=== PATIENT | female | born 1990 | race Caucasian/White ===

== ENCOUNTER 2017-03-27 13:52 | Inpatient (IN) | payer BC ==
[~2017-03-27] VITALS: Ht 167.6 cm; Wt 112.6 kg
[2017-03-27 14:30] VITALS: O2SAT 98
[2017-03-27 14:34] LABS: I-STAT POTASSIUM 4.2 MMOL/L (3.5-4.9)
--- NOTE | 2017-03-27 14:35 | PD.CAR.PN ---
CVT Progress Note Subjective/Hospital Course: Patient is a 26-year-old female who slid down a incline obstacle course wall from about 10 feet while holding onto a rope. Incline was such that the patient actually didn't fall but slipped down the slippery obstacle and landed on her right ankle For some reason this was called as a trauma alert but by any mechanism of injury or injuries present he did not qualify for the same. Patient has isolated closed right ankle fracture and splint is applied Physical examination reveals right foot in a splint warm well perfused with normal capillary refill No vascular or neurologic deficit Patient is downgraded to regular ER evaluation and care Thanks Deann Apodaca MD March 27, 2017 14:35
--- NOTE | 2017-03-27 14:36 | RADRPT ---
EXAM DATE/TIME: 03/27/2017 13:46 [facility] COMPARISON: No previous studies available for comparison. INDICATIONS : Trauma alert. Right ankle pain. MEDICAL HISTORY : None. SURGICAL HISTORY : None. ENCOUNTER: Initial ACUITY: 1 day PAIN SCORE: 5/10 LOCATION: Right ankle. FINDINGS: Two view examination was performed of the right ankle. There are bimalleolar displaced fractures with dislocation the ankle mortise. No radiopaque foreign bodies are seen. Bony mineralization is richy l. CONCLUSION: Bimalleolar fractures with dislocation. Jason Santacruz MD on March 27, 2017 at 14:33 Board Certified Radiologist. This report was verified electronically.
--- NOTE | 2017-03-27 14:37 | RADRPT ---
EXAM DATE/TIME: 03/27/2017 13:59 [facility] COMPARISON: No previous studies available for comparison. INDICATIONS : Trauma alert. Post reduction right ankle. MEDICAL HISTORY : None. SURGICAL HISTORY : None. ENCOUNTER: Initial ACUITY: 1 day PAIN SCORE: 5/10 LOCATION: Right ankle. FINDINGS: Two view examination was performed of the right ankle. Postreduction splinted views demonstrates sign ificant improvement in alignment. Bimalleolar fractures with mild displacement. Ankle mortise near-an atomic. CONCLUSION: Postreduction splinted views with significant improvement in alignment. Jason Santacruz MD on March 27, 2017 at 14:34 Board Certified Radiologist. This report was verified electronically.
[2017-03-27 14:40] LABS: APTT (PATIENT) 23.3 SEC (24.3-30.1); PROTHROMBIN TIME - PATIENT 10.5 SEC (9.8-11.6)
[2017-03-27 14:41] VITALS: O2SAT 98
[2017-03-27 14:47] LABS: BASOPHIL # 0.1 TH/MM3 (0-0.2); BASOPHIL % 0.4 % (0.0-2.0); EOSINOPHIL # 0.1 TH/MM3 (0-0.4); EOSINOPHIL % 0.5 % (0.0-4.0); HEMATOCRIT 36.4 % (35.0-46.0); HEMO FLAGS DIFF FINAL; LYMPH % 10.5 % (9.0-44.0); LYMPHOCYTE # 1.5 TH/MM3 (1.0-4.8); MEAN CELL VOLUME 79.3 FL (80.0-100.0); MEAN CORPUSCULAR HEMOGLOBIN 26.4 PG (27.0-34.0); MEAN CORPUSCULAR HGB CONC 33.3 % (32.0-36.0); MONO % 4.1 % (0.0-8.0); NEUT % 84.5 % (16.0-70.0); PLATELET COUNT 290 TH/MM3 (150-450); RED BLOOD COUNT 4.59 MIL/MM3 (4.00-5.30); RED CELL DISTRIBUTION WIDTH 14.5 % (11.6-17.2); WHITE BLOOD COUNT 14.2 TH/MM3 (4.0-11.0)
--- NOTE | 2017-03-27 14:50 | PD ---
HPI Chief Complaint: Trauma (Alert) Time Seen by Provider: 13:58 Travel History International Travel<30 days: No Contact w/Intl Traveler<30days: No Traveled to known affect area: No History of Present Illness HPI Young female patient was brought in as a trauma alert. I was present in the room prior to her arrival. Patient was in an obstacle course climbing a slanted wall when she lost control and slid on the wall. She landed on the ground awkwardly on her right ankle/foot twisted. She was unable to stand up and was on severe pain. Initially when paramedics arrived they could not feel a pulse. Her initial blood pressure was in the 90s. They called a trauma alert based on those 2 criteria. She did not hit her head and did not lose consciousness. No other injuries. She was awake, GCS of 15 and hemodynamically stable. Otherwise a healthy patient she said. [facility] Past Medical History Narrative Medical No significant past medical history. Medical History: Denies Significant Hx Past Surgical History Cholecystectomy: Yes Social History Tobacco Use: No Allergies-Medications (Allergen,Severity, Reaction): Coded Allergies: Penicillin (Verified Allergy, Unknown, 03/27/17) Comments Unknown Reported Meds & Prescriptions Reported Meds & Active Scripts Active Narrative Medication Unknown Review of Systems Except as stated in HPI: all other systems reviewed are Neg Physical Exam Narrative GENERAL: Awake, alert, obese, mild distress SKIN: Focused skin assessment warm/dry. Covered in drive moderate HEAD: Atraumatic. Normocephalic. EYES: Pupils equal and round. No scleral icterus. No injection or drainage. ENT: No nasal bleeding or discharge. Mucous membranes pink and moist. NECK: Trachea midline. No JVD. CARDIOVASCULAR: Regular rate and rhythm. No murmur appreciated. RESPIRATORY: No accessory muscle use. Clear to auscultation. Breath sounds equal bilaterally. GASTROINTESTINAL: Abdomen soft, non-tender, nondistended. Hepatic and splenic margins not palpable. MUSCULOSKELETAL: Right ankle deformity. No palpable pulse but dopplerable pulses present. Distal neurovascular intact. No clubbing. No cyanosis. No edema. NEUROLOGICAL: Awake and alert. No obvious cranial nerve deficits. Motor grossly within normal limits. Normal speech. PSYCHIATRIC: Appropriate mood and affect; insight and judgment normal. Data Data Last Documented VS Vital Signs Date Time Temp Pulse Resp B/P Pulse Ox O2 Delivery O2 Flow Rate FiO2 03/27/17 14:41 98 Nasal Cannula 2.00 Orders Ed Poc Ultrasound (03/27/17 ) I-Stat Profile (03/27/17 14:04) I-Stat Creatinine (03/27/17 14:04) Complete Blood Count With Diff (03/27/17 14:04) Prothrombin Time / Inr (Pt) (03/27/17 14:04) Act Partial Throm Time (Ptt) (03/27/17 14:04) Type And Screen (03/27/17 14:04) Iv Access Insert/Monitor (03/27/17 14:04) Ecg Monitoring (03/27/17 14:04) Oximetry (03/27/17 14:04) Oxygen Administration (03/27/17 14:04) Ankle, Limited (Ap&Lat) (03/27/17 ) Ankle, Limited (Ap&Lat) (03/27/17 ) Fiberglass Short Leg Splint Ad (03/27/17 ) Fiberglass Sugartong Sp Ad Sl (03/27/17 ) Admit Order (Ed Use Only) (03/27/17 14:51) Labs Laboratory Tests Test 03/27/17 14:19 White Blood Count 14.2 TH/MM3 Red Blood Count 4.59 MIL/MM3 Hemoglobin 12.1 GM/DL Bedside Hemoglobin 12.6 G/DL Hematocrit 36.4 % Bedside Hematocrit 37.0 % Mean Corpuscular Volume 79.3 FL Mean Corpuscular Hemoglobin 26.4 PG Mean Corpuscular Hemoglobin 33.3 % Concent Red Cell Distribution Width 14.5 % Platelet Count 290 TH/MM3 Mean Platelet Volume 8.9 FL Neutrophils (%) (Auto) 84.5 % Lymphocytes (%) (Auto) 10.5 % Monocytes (%) (Auto) 4.1 % Eosinophils (%) (Auto) 0.5 % Basophils (%) (Auto) 0.4 % Neutrophils # (Auto) 12.0 TH/MM3 Lymphocytes # (Auto) 1.5 TH/MM3 Monocytes # (Auto) 0.6 TH/MM3 Eosinophils # (Auto) 0.1 TH/MM3 Basophils # (Auto) 0.1 TH/MM3 CBC Comment DIFF FINAL Differential Comment Prothrombin Time 10.5 SEC Prothromb Time International 1.0 RATIO Ratio Activated Partial 23.3 SEC Thromboplast Time Bedside Sodium 140 MMOL/L Bedside Potassium 4.2 MMOL/L Bedside Chloride 107 MMOL/L Bedside Blood Urea Nitrogen 12 MG/DL Bedside Creatinine 0.8 MG/DL Bedside Glucose 97 MG/DL Blood Type A NEGATIVE Antibody Screen NEGATIVE [facility] Medical Screen Exam Complete: Yes Emergency Medical Condition: Yes Medical Record Reviewed: Yes EKG Prior to Arrival: Yes Differential Diagnosis Ankle fracture, ankle dislocation Narrative Course 2:46 PM the ankle was reduced by me and the splint applied by [employer]. I discussed the case with Dr. Treadwell who is on for orthopedics and he wanted the splint to have the cold machine inserted into the splint. He wanted the patient to be nothing by mouth after midnight and would operate tomorrow by Dr. Nayak. Patient has been informed about this. She is okay with that. She is currently comfortable. Trauma surgeon was here and saw the patient and downgraded her. Patient will be admitted to the orthopedic service. Critical Care Narrative Aggregate critical care time was 30 minutes. Time to perform other separately billable procedures was not included in the critical care time. My time did not include minutes spent treating any other patients simultaneously or on activities that did not directly contribute to the patient's treatment. The services I provided to this patient were to treat and/or prevent clinically significant deterioration that could result in: Trauma alert I provided critical care services requiring my management, as noted below: Chart data review, documentation time, medication orders and management, vital sign assessments/reviewing monitor data, ordering and reviewing lab tests, ordering and interpreting/reviewing x-rays and diagnostic studies, care of the patient and discussion of the patient with the admitting physicians. Procedures Procedure Narrative Ankle dislocation reduction: The ankle joint was manipulated and reduced by me and brought back to anatomical alignment. Patient tolerated the procedure well. Splint was applied by the [employer]. Physician Communication Dr. Duarte, Dr. Treadwell Diagnosis Diagnosis: Primary Impression: Fall Qualified Code: W19.XXXA - Fall, initial encounter Additional Impressions: Ankle dislocation Qualified Code: S93.04XA - Ankle dislocation, right, initial encounter Ankle fracture, right Qualified Code: S82.891A - Ankle fracture, right, closed, initial encounter Admitting Physician Requests: Admit Scripts Hydrocodone-Acetaminophen ([place])7.5-325 mg Tab1 Tab PO Q4H PRN (PAIN) #60 TAB Ref 0 Prov:Diogenes Torres 03/28/17 Ward Mock MD March 27, 2017 14:50
[2017-03-27 16:33] VITALS: BP 108/58; PULSE 89; RESP 16; O2SAT 100
[2017-03-27] MEDS: MORPHINE SULFATE 4 MG/ML INJ IV PRN ×3 (18:00→22:48)
[2017-03-27 20:05] VITALS: BP 121/77; PULSE 92; RESP 17; TEMP 99.8; O2SAT 99
[2017-03-28 00:25] VITALS: BP 112/55; PULSE 84; RESP 16; TEMP 98.4; O2SAT 100
[2017-03-28] MEDS: MORPHINE SULFATE 4 MG/ML INJ IV PRN ×2 (00:56→04:24)
[2017-03-28 04:35] VITALS: BP 121/59; PULSE 93; RESP 17; TEMP 98.6; O2SAT 99
[2017-03-28] MEDS ORDERED: HYDR-3288 PO (06:29)
[2017-03-28] MEDS ORDERED: WALKER/ADULT/FO1 MIS (06:29)
--- NOTE | 2017-03-28 06:32 | PD.ORT.PN ---
Subjective Subjective Remarks s/p fall while doing a mud run right ankle pain. no other complaints. Objective Vitals Vital Signs Date Time Temp Pulse Resp B/P Pulse Ox O2 Delivery O2 Flow Rate FiO2 03/28/17 04:35 98.6 93 17 121/59 99 03/28/17 00:25 98.4 84 16 112/55 100 03/27/17 20:05 99.8 92 17 121/77 99 03/27/17 16:33 89 16 108/58 100 03/27/17 14:41 98 Nasal Cannula 2.00 03/27/17 14:30 98 2.00 I/O 03/27/17 03/27/17 03/27/17 03/28/17 03/28/17 03/28/17 07:00 15:00 23:00 07:00 15:00 23:00 Intake Total 480 ml Balance 480 ml Intake Oral 480 ml # Voids 1 # Bowel Movements 0 Result Diagram: 03/27/17 1419 Other Results Laboratory Tests Test 03/27/17 14:19 Prothrombin Time 10.5 SEC (9.8-11.6) Prothromb Time International 1.0 RATIO Ratio Objective Remarks RLE: +short leg splint. intact. NVI. no pain in knee or hip Assessment & Plan Assessment and Plan 1) Right Trimalleolar Ankle Fx -NPO -Consents -surgery today Diogenes Torres March 28, 2017 06:31
[2017-03-28] MEDS ORDERED: GENTAMICIN SULFATE 80 MG/2 ML VIAL ONE (06:59)
[2017-03-28] MEDS ORDERED: ACETAMINOPHEN 1000 MG/100 ML VIAL IV ONE (07:09)
[2017-03-28] MEDS ORDERED: MIDAZOLAM HCL 2 MG/2 ML VIAL ONE (07:10)
[2017-03-28] MEDS ORDERED: DEXAMETHASONE SOD PHOS 4 MG/ML VIAL ONE (07:10)
[2017-03-28] MEDS ORDERED: fentaNYL CITRATE 250 MCG/5 ML AMP ONE (07:10)
[2017-03-28] MEDS ORDERED: FAMOTIDINE 20 MG/2 ML VIAL ONE (07:10)
--- NOTE | 2017-03-28 07:17 | MB ---
cc: JUDE TYSON AKA: Evie Ponce DATE OF CONSULTATION: 03/28/2017 REASON FOR CONSULTATION Right ankle fracture-dislocation. HISTORY OF PRESENT ILLNESS This patient known as Evie Ponce, whose real name is Candido Flores, was doing an obstacle course race. She was climbing a slanted wall. She lost control and fell. She hit the ground and landed on her right ankle. She had immediate right ankle pain and deformity. She presented to the emergency room as a Trauma Alert. Her only complaint is her right ankle. Pain is worse with movement and is improved with rest. X-rays in the emergency department revealed a fracture-dislocation of the right ankle. She underwent closed reduction in the emergency department. She denies any other injuries. She had no loss of consciousness. PAST MEDICAL HISTORY SURGERIES Cholecystectomy. ALLERGIES No known drug allergies. MEDICATIONS Please see EMR for complete list of inpatient medications. ILLNESSES None. SOCIAL HISTORY The patient denies alcohol, tobacco or drug use. REVIEW OF SYSTEMS The patient denies headache, visual changes, neck pain, chest pain, shortness of breath, abdominal pain, nausea, vomiting or recent weight loss. She complains of right ankle pain. Pain is worse with movement. PHYSICAL EXAMINATION GENERAL: The patient is a pleasant 26-year-old female who is awake and alert. She appears well-developed, well-nourished. She is alert and oriented. HEAD: The patient is normocephalic. Pupils are equal. NECK: Soft and nontender. Trachea is midline. ABDOMEN: Soft, nontender, nondistended. EXTREMITIES: Examination of bilateral upper extremities reveals no significant pain with shoulder, elbow or wrist motion bilaterally. She has intact sensation in all fingers. Radial pulses are palpable. She has +5 burglar alarm assembler strength bilaterally. She does have some bruises on her right arm. Examination of left leg reveals no pain with hip, knee or ankle motion. Skin is intact. Dorsalis pedis pulse is palpable. Sensation is intact. Examination of right leg reveals no pain with hip or knee motion. She is diffusely tender around the ankle. She is in a well-padded splint. She has good capillary refill in her toes. Sensation is intact in her toes. X-RAYS X-rays of right ankle were reviewed. The patient initially had a dislocated trimalleolar right ankle fracture. Post-reduction x-rays reveal reasonable alignment of the ankle. IMPRESSION Right ankle fracture-dislocation. PLAN The treatment options were discussed with the patient. At this point I would recommend open reduction, internal fixation of right ankle. The risks of surgery include bleeding, infection, injuries to arteries, nerves and blood vessels, nonunion, malunion, painful hardware, as well as medical complications associated with anesthesia. I also explained that she will likely have some stiffness and loss of motion of her ankle. She could also develop posttraumatic arthritis. All questions were answered. I will plan on surgery today. A mid-level provider in my office, nurse practitioner or PA, may see this patient on a follow-up basis and continue to implement the objective of this plan including: Starting or adjusting medications, injections of muscle, tendon, bursa or joints, cast application, orthotic or brace application, physical therapy, further radiographic studies including x-ray, MRI, CT, ultrasounds or bone scan, vascular studies, neurologic studies, or other specialist consultations, and proceeding with surgical management as appropriate. MD VAN Pal/KAYLAH /6:56 AM /7:09 AM
[2017-03-28] MEDS ORDERED: ceFAZolin INJ 1,000 MG VIAL ONE (07:38)
[2017-03-28] MEDS ORDERED: SODIUM CHLOR 0.9% 250 ML INJ 250 ML ONE (07:38)
[2017-03-28] MEDS ORDERED: VANCOMYCIN HCL 1000 MG VIAL ONE (07:38)
--- NOTE | 2017-03-28 08:44 | PD.OP ---
cc: Antony Nayak MD Operative Report Date of Surgery: March 28, 2017 Preoperative Diagnosis: Displaced right ankle trimalleolar fracture Postoperative Diagnosis: Procedure: Open reduction internal fixation right ankle trimalleolar fracture, stress exam syndesmosis, open reduction internal fixation right ankle syndesmosis Surgeon: Antony Nayak Warning Coordination Meteorologist(s): GUMARO Brower PA-C The surgical procedure was assisted by my physician client account assistant. My P.A. presence was necessary throughout this case for the manipulation and positioning of the surgical extremity. My P.A. was assisting me throughout the duration of this procedure. The skill set of a physician client account assistant was medically necessary to complete this procedure. During the surgical case the surgical instrument technician was working at the back table and the physician client account assistant was directly assisting me. Operation and Findings: Patient was seen and evaluated preoperatively and found to have a displaced right trimalleolar ankle fracture. Informed consent was obtained after a detailed discussion of risk and benefits of surgery. The operative site was marked. Patient was brought to the OR, placed on the OR table, and given IV sedation and general endotracheal anesthesia. IV antibiotics were given preoperatively. A timeout procedure was performed. The left leg was prepped with alcohol followed by Hibiclens and draped in the usual sterile fashion. Attention was turned towards the distal fibula. A four-inch incision was made over the distal fibula. The subcutaneous tissue was dissected with Bovie. The fracture site was visualized. The fracture site was cleaned with curets. The fracture was now reduced. The fracture keyed into anatomic alignment. K-wires were used to h old provisional fixation. A lag screw was placed to compress fracture. An ITS fibula plate was selected. The plate was provisionally held to bone with K-wires. 3.5 cortical screws were used to compress the plate to bone. Multiple screws were placed above and below the fracture. Next attention was turned towards the medial malleolus. The medial malleolus supposed through a 3 cm incision. Saphenous vein was retracted. Fracture was visualized. Fracture was cleaned with curettes. Fracture was now reduced and keyed into anatomic alignment. K wires were used to hold provisional fixation. 2 guidepins for the 4.0 cannulated screws were placed in a retrograde fashion across the fracture. Fluoroscopy was used to confirm guidepin placement. Cannulated drill was placed over the guidepin. 2 appropriate length screws were now placed. Good compression was applied. Fluoroscopy confirmed well aligned fracture with well-placed hardware. Next, attention was turned to the syndesmosis. The syndesmosis was stressed. There was clear widening of the syndesmosis with external rotation of the ankle. The syndesmosis was now held in a reduced position with the ankle in neutral position. Two 3.5 cortical screws were now placed through the fibula plate into the tibia. Fluoroscopy confirmed appropriate screw placement with well-aligned syndesmosis. Incisions were thoroughly irrigated. The subcutaneous tissue was closed with 3-0 PDS and the skin was closed with 3-0 nylon. Sterile dressings were applied. A well molded well-padded splint was applied. The patient was transferred to Recovery in stable condition. Needle and sponge counts were correct. Antony Nayak MD March 28, 2017 08:44
[2017-03-28] MEDS ORDERED: ONDANSETRON HCL 4 MG/2 ML VIAL IVP PRN (08:45)
[2017-03-28] MEDS ORDERED: MORPHINE SULFATE 4 MG/ML INJ IV PUSH PRN (08:45)
[2017-03-28] MEDS ORDERED: Post-op Orders (for Pharmacy) MISC XX ONE (08:45)
[2017-03-28] MEDS ORDERED: ACETAMINOPHEN/HYDROcodone 325 MG/7.5 MG TAB PO PRN (08:45)
[2017-03-28] MEDS ORDERED: *morphine SULFATE 8 MG/ML PERIprocedure ONLY ONE (09:23)
[2017-03-28 10:06] VITALS: BP 120/78; PULSE 87; RESP 18; TEMP 97; O2SAT 98
[2017-03-28] MEDS: ACETAMINOPHEN/HYDROcodone 325 MG/7.5 MG TAB PO PRN ×2 (10:17→16:41)
--- NOTE | 2017-03-28 11:08 | RADRPT ---
EXAM DATE/TIME: 03/28/2017 08:26 [facility] COMPARISON: ANKLE RIGHT LIMITED (AP&LAT), March 27, 2017, 13:59. INDICATIONS : ORIF right ankle. MEDICAL HISTORY : None. SURGICAL HISTORY : None. ENCOUNTER: Subsequent ACUITY: 2 days PAIN SCORE: Non-responsive. LOCATION: Right ankle. FINDINGS: Status post internal fixation at the ankle. There is good position and alignment of the fracture frag ments. The hardware is grossly intact. There is good alignment the mortise joint. CONCLUSION: Good position and alignment on this postoperative study. Michael Mohr MD on March 28, 2017 at 11:06 Board Certified Radiologist. This report was verified electronically.
[2017-03-28 11:35] VITALS: O2SAT 97
[2017-03-28 11:55] VITALS: BP 139/72; PULSE 88; RESP 18; TEMP 97.7; O2SAT 97
[2017-03-28] MEDS ORDERED: ONDANSETRON HCL 4 MG/2 ML VIAL IV PUSH ONE (13:29)
[2017-03-28] MEDS ORDERED: PROPOFOL 200 MG/20 ML AMP IV ONE (13:29)
[2017-03-28 16:00] VITALS: BP 109/71; PULSE 58; RESP 18; TEMP 96.6; O2SAT 99
--- NOTE | 2017-04-21 14:01 | PD.ORT.PN ---
Subjective Subjective Remarks patient doing well status post surgery Progressing well with physical therapy Objective Objective Remarks right lower extremity: Short leg splint intact with no drainage. Intact sensation in all toes. Good capillary refills. Assessment & Plan Assessment and Plan Right Trimalleolar Ankle Fx patient progressing well status post surgical intervention for right ankle fracture Pain controlled Nonweightbearing right lower extremity Discharge to home Maintain splint, elevate as needed to decrease swelling Follow-up with Dr. Bonilla or PA in 2 weeks Parvez Mcdaniels Jr. Apr 21, 2017 14:01
== END 2017-03-28 17:00 | disposition home or self-care (01) | DRG 494 ==
LOC: NEPI 13:52 → NEDA 14:52 → EDBD 14:52 → N06A 17:29
PROVIDERS: ADMIT Orthopaedic Surgery; ATTEND Orthopaedic Surgery
PROC: 0SSFXZZ Reposition Right Ankle Joint, External Approach (ICD-10-PCS; 2017-03-27)
PROC: 0QSG04Z Reposition Right Tibia with Internal Fixation Device, Open Approach (ICD-10-PCS; 2017-03-28)
PROC: 0QSJ04Z Reposition Right Fibula with Internal Fixation Device, Open Approach (ICD-10-PCS; principal; 2017-03-28 07:15)
DX: S82.851A Displaced trimalleolar fracture of right lower leg, initial encounter for closed fracture (principal); W17.89XA Other fall from one level to another, initial encounter; Y92.9 Unspecified place or not applicable; Y99.9 Unspecified external cause status; Y93.79 Activity, other specified sports and athletics
CPT/HCPCS: 27840; 73600; 76000; 82435; 82565; 82947; 84132; 84295; 84520; 85025; 85610; 85730; 86850; 86900; 86901; 94150; 99291; C1713; E0113; G0390; J0131; J0690; J1100; J1580; J2250; J2270; J2405; J3010; J3370; J7050